=== PATIENT | male | born 1950 | race Caucasian/White ===

== ENCOUNTER 2025-06-18 23:00 | Emergency (ER) | payer MEDICARE, OTHER, SELFPAY ==
[2025-06-18 23:06] VITALS: BP 142/89
[2025-06-18 23:31] VITALS: BMI 33.5
[2025-06-18 23:34] VITALS: BP 129/60
[2025-06-18] MEDS: NSS 1000 IV (23:46)
[2025-06-18] MEDS: TORADOL 15 MG IV (23:49)
[2025-06-18] MEDS: REGLAN 10 MG IV (23:49)
[2025-06-18] MEDS: BENADRYL 25 MG IV (23:50)
[2025-06-18] MEDS: DECADRON 10 MG IV (23:50)
[2025-06-19] VITALS: BP 152/75
[2025-06-19 00:06] LABS: Hematocrit 47.4 % (39.0-52.0); Hemoglobin 15.8 g/dL (13.0-18.0); Mean Corp Hgb Conc. 33.3 g/dL (33.0-37.0); Mean Corpuscular Volume 85.1 fL (80.0-94.0); Nucleated Red Blood Cells % 0 % (-); Platelet Count 275 10^3/uL (130-400); Red Cell Dist. Width 14.3 % (11.5-14.5)
[2025-06-19 00:22] LABS: ALT (SGPT) 34 U/L (0-50); AST (SGOT) 26 U/L (17-59); Albumin 4.4 g/dl (3.5-5.0); Alkaline Phosphatase 64 U/L (38-126); Blood Urea Nitrogen 28 mg/dl (9-20); Calcium 10.1 mg/dl (8.4-10.2); Carbon Dioxide 25 mmol/L (22-30); Chloride 105 mmol/L (98-107); Estimated Creatinine Clearance 79 ml/min; Glucose 214 mg/dl (70-99); Potassium 4.1 mmol/L (3.5-5.1); Sodium 136 mmol/L (135-145); Total Protein 6.9 g/dl (6.3-8.2); eGFR > 60.00
[2025-06-19 00:31] LABS: INR 1.04; PT 14.1 Sec (11.4-14.6)
[2025-06-19 00:32] LABS: APTT 28.2 Sec (23.4-35.0)
[2025-06-19 00:37] LABS: Urine Character Clear (Clear)
[2025-06-19 00:56] LABS: Urine Red Blood Cell 0-2 /HPF (0-2); Urine Squamous Cell 0-2 /LPF (Few); Urine White Cell 0-2 /HPF (0-5)
[2025-06-19 01:00] VITALS: BP 140/82
[2025-06-19 01:35] LABS: Troponin I 0.017 ng/ml
[2025-06-19 01:37] LABS: TSH 2.22 uIU/ml (0.47-4.68)
[2025-06-19] MEDS: NSS 1000 IV (01:52)
[2025-06-19 02:00] VITALS: BP 134/79
--- NOTE | 2025-06-19 02:20 | ED.GENMED ---
History of Present Illness
General
Chief Complaint: Headache
Source: patient, spouse and family
Exam Limitations: none
Time Seen by Provider: 06/18/25 23:22
Nursing documentation reviewed up to this point in time: agreed with
History of Present Illness
History of Present Illness:
Note:
CHIEF COMPLAINT(S)
Remote history of infected finger, current mild headaches, tingling of the scalp, extreme fatigue, racing heart, and episodic feelings of warmth and sweating.
HISTORY OF PRESENT ILLNESS
The patient is a 75-year-old male who initially presented with an infected finger in early March, leading to an urgent care visit where he was prescribed Cephalexin. Subsequent cultures indicated that Cephalexin was ineffective against the bacteria
present. The patient declined to take Vancomycin due to concerns regarding its effectiveness outside the gastrointestinal tract.
Approximately two weeks ago, the patient started experiencing a constellation of symptoms, which started while playing golf. These symptoms included slight headaches, tingling of the scalp, extreme fatigue, racing heart, and episodic feelings of
warmth and sweating, with some episodes lasting as long as two hours. Notably, the patient mentioned that despite taking Ibuprofen, these symptoms persisted, and he described these episodes as periodic rather than continuous until todays sustained
headache.
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 He denied any nausea, vomiting, diarrhea, constipation, or difficulties with urination. Despite feeling warm and sweating, he reported no fevers. There is a
history of a brain abscess treated 26 years ago at the [facility], with the causative bacteria identified as Enterococcus faecalis resistant to culture growth.
PAST MEDICAL AND SURGICAL HISTORY
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
ADDITIONAL HISTORY OBTAINED FROM SOURCES OTHER THAN THE PATIENT
The [facility] [place] [facility], and the flagged lab results showed normal inflammatory markers, normal white blood cell counts, and normal C-reactive protein levels. Despite this, the physician
was concerned about the possibility of a hiding infection due to past medical history.
CHRONIC MEDICAL CONDITIONS SIGNIFICANTLY AFFECTING CARE
The patient has a history of being treated for racing heart with Propranolol ten years ago.
SOCIAL DETERMINANTS AFFECTING HEALTH
The patients is currently undergoing treatment for pancreatic cancer and diabetes, which has caused significant stress for the patient, including disrupted sleep patterns due to monitoring her blood sugar levels.
REVIEW OF SYSTEMS
- Neurological: Headaches, tingling of the scalp.
- Cardiovascular: Racing heart.
- General: Extreme fatigue.
- Dermatological: Episodic feelings of warmth and sweating.
PHYSICAL EXAM
General: Alert, no acute distress.
Skin: Warm, dry.
Head: Normocephalic, atraumatic.
Neck: Supple, trachea midline.
Eye, Ears, Nose, Mouth, and Throat: Oral mucosa moist.
Cardiovascular: Normal peripheral perfusion, no edema.
Respiratory: Respirations are non-labored.
Gastrointestinal: Abdomen nondistended.
Back: Normal range of motion, normal alignment.
Musculoskeletal: Normal range of motion, normal strength.
Neurological: Alert and oriented to person, place, time, and situation, no focal neurological deficit observed.
Psychiatric: Cooperative, appropriate mood & affect.
PLAN
- Conduct a CT angio of the head and neck of the head to evaluate for any intracranial abnormalities, fluid collections, or masses.
- Consider a lumbar puncture to further investigate the presence of an infection if the CT findings are inconclusive. Patient refused
- Analyze current blood work and diagnostic imaging to rule out any hidden infection.
- Address current headache with appropriate medication.
- Evaluate thyroid function as a potential source of the symptoms.
- If necessary, proceed with cerebrospinal fluid analysis to rule out meningitis or other central nervous system infections.
DIFFERENTIAL DIAGNOSIS
The Differential Diagnosis includes, in no particular order and is not limited to:
1. Intracranial mass or abscess not seen on CAT scan
2. Meningitis felt unlikely, patient refused lumbar puncture
3. Thyrotoxicosis
4. Anxiety disorder due to situational stress patient states that he does have a lot of situational stress recently
5. Cardiovascular event or arrhythmia
6. Chronic fatigue syndrome
7. Systemic infection
8. Neuropathic pain or neuralgia
9. Medication side effect
10. Heat exposure or generalized hyperhidrosis
CARE-UPDATE
06/19/25 - 04:12
Discussed lab results and CT scan with patient. Patient hesitant about lumbar puncture. I agreed, given normal labs, absence of nuchal rigidity, resolved headache, and no fever. Patient considering LP; we will follow up.
Disposition:
SUMMARY OF ENCOUNTER
The patient is a 75-year-old male who presented to the emergency department with complaints of a mild headache. He denied neck pain, nuchal rigidity, blurry vision, numbness, tingling, difficulty breathing, difficulty swallowing, and chest pain. The
patient has a distant history of a brain abscess. A CT and CT angiography of the head and neck were performed, showing no acute processes, but did reveal a ecsar hole from previous treatment of the abscess. Inflammatory markers were within normal
limits. After discussing the potential need for a lumbar puncture, the patient decided against it after understanding the risks of possible misdiagnosis without it. The patient wishes to follow up with neurology.
DISPOSITION
Discharge.
ASSESSMENT
The patients symptoms of a mild headache appear stable, and imaging shows no acute intracranial events. He remains neurologically intact with a history of brain abscess and the current headache likely related but not life-threatening.
PLAN
The patient is advised to follow up with a neurologist for further evaluation and management of his headaches. He is discharged home in an improved condition.
INDEPENDENT REVIEW OF LABS AND INTERPRETATION OF TESTS
My independent review of lab work indicates inflammatory markers are within normal limits.
ADDITIONAL TESTING AND IMAGING CONSIDERED
A lumbar puncture was considered but ultimately not performed due to the patient�s decision after discussing the risks and benefits.
MEDICAL DECISION MAKING
-Complexity of Data Reviewed: Chronic conditions affecting care [History of brain abscess]
-Differential Diagnosis:
1. Intracranial mass or abscess
2. Meningitis
3. Thyrotoxicosis
4. Anxiety disorder due to situational stress
5. Cardiovascular event or arrhythmia
6. Chronic fatigue syndrome
7. Systemic infection
8. Neuropathic pain or neuralgia
9. Medication side effect
10. Heat exposure or generalized hyperhidrosis
-Data:
Category 1
- My independent interpretation of CT and CT angiography showed no acute intracranial processes.
Category 2
- Clinical information was obtained from an independent historian: The patients prior records indicate a history of a brain abscess treated 26 years ago.
-Risk:
Prescription medication was not prescribed.
Care significantly affected by Social Determinants of Health: The patients stress related to his wifes health condition.
DIAGNOSIS
Headache, unspecified (ICD-10: R51.9)
Phy Exam
Physical Exam
Physical Exam:
.
Sepsis
Sepsis Screening
Sepsis Assessment: Sepsis Ruled Out
Sepsis Screen
Sepsis Screen: Sepsis Ruled Out
Date: 06/19/25
Time: 05:27
Course
Orders/Labs/Results
Orders:
Orders
06/18/25 23:25
0.9% Sodium Chloride 1000 ml [Nss] 1,000 ml IV BOLUS
Dexamethasone Sod Phosphate [Decadron] 10 mg IV NOW STA
Diphenhydramine [Benadryl] 25 mg IV NOW STA
Ketorolac [Toradol] 15 mg IV NOW STA
Metoclopramide [Reglan] 10 mg IV NOW STA
06/18/25 23:40
Complete Blood Count/With Diff Urgent
Comprehensive Metabolic Panel Urgent
Erythrocyte Sed Rate Urgent
PTT Urgent
Prothrombin Time Urgent
06/18/25 23:59
UA Reflex to Culture [Urinalysis Reflex To Culture] Urgent
Date Specimen was Collected: 06/19/25
Time Specimen was Collected: 00:00
Blood Culture Urgent
JENI Source: Blood/Venous
Specimen Description:
Date Specimen was Collected: 06/19/25
Time Specimen was Collected: 00:00
06/19/25
CT Head & Neck Angio W/wo IV Urgent
Reason For Exam: intractable headache
06/19/25 00:05
TSH Urgent
06/19/25 00:16
Urine Microscopic Reflex Cult Urgent
06/19/25 00:29
Electrocardiogram (*1) Urgent
Reason for Study: Vertigo / Dizzy
EKG- Treatment ONCE
0.9% Sodium Chloride 1000 ml [Nss] 1,000 ml IV BOLUS
06/19/25 00:46
Troponin I Urgent
Abnormal Lab Results
06/18/25 06/19/25
23:40 00:16
Absolute Lymphs (auto) 1.0 L 10^3/uL
(1.2-3.4)
Neutrophils % 78.1 H %
(42.2-75.2)
Lymphocytes % 12.0 L %
(20.5-51.1)
BUN 28 H mg/dl
(9-20)
Glucose 214 H mg/dl
(70-99)
Urine Bacteria (Reflex) Few A
(Negative)
Urine Albumin (Reflex) 2+ A
(Neg - Trace)
06/18/25 23:40
06/18/25 23:40
Vital Signs
Initial and Last Documented VS:
Initial Vital Signs
Temp Pulse Resp BP Pulse Ox
98.1 F 111 20 142/89 95
06/18/25 23:06 06/18/25 23:06 06/18/25 23:06 06/18/25 23:06 06/18/25 23:06
Last Documented Vital Signs
Temp Pulse Resp BP Pulse Ox
98.1 F 71 17 152/75 94
06/18/25 23:06 06/19/25 01:00 06/19/25 01:00 06/19/25 00:00 06/19/25 02:20
*Radiology
Radiology exam reviewed: preliminary read by ED provider
*Pulse Oximetry
SaO2: 94
Oxygen Mode of Delivery: Room air
Patient hypoxic: no
*Critical Care Note
Total Time (30-74mins, 75-104mins- exclusive of procedures): Not Applicable
Update Note
Update Note:
NAME: MENDOZA SPICER
DATE OF EXAM: 06/19/2025
Patient No: [id number]
Physician: EZEQUIEL^Tony
Date of : 1950
Past Medical History (entered by Technologist):
Reason For Exam (entered by Technologist):
Other Notes (entered by Technologist): pt presents with vertigo, headache, and unsteady gait
Additional Information (per Vision Radiologist):
CT head without contrast
CTA head and neck with IV contrast
IMPRESSION:
Non-contrast Head:
No acute intracranial abnormality. No acute territorial infarct, hemorrhage, mass effect, or midline shift. Mild microangiopathy. Left parietal cesar hole.
CTA Neck:
The bilateral vertebral arteries are widely patent. Bilateral common carotid and internal carotid arteries are widely patent without significant stenosis. Mild atherosclerosis of the bilateral carotid artery bifurcations, right greater than left.
Mild cervical spondylosis.
CTA Head:
The [place] de[place]' of [place] is patent without aneurysm, stenosis, or occlusion.
The results were faxed/finalized only at [id number] ET. If you would like to discuss this case directly please call [phone] (extension [phone]). If you can't reach me at this number, do not leave a voicemail. Please call [phone] ext [phone] and ask for
the next available Radiologist.
Anisa Clement M.D.
This report has been electronically signed and verified by the Radiologist whose name is printed above.
ED Attending Note
-
Portions of this chart may have been created with voice recognition software.� Occasional wrong word or��sound alike� substitutions may have occurred due to the inherent limitations of voice recognition software.
Discharge Plan
Departure
Patient Disposition: Home (Routine Discharge)
Date of Disposition: 06/19/25
Time of Disposition: 05:26
Patient with high blood pressure during this ER visit?: Yes
Condition: Good
Discharge Problem:
Headache, Anxiety
Referrals:
Joslyn Han MD [Non-Admitting Privileges, Psychiatry] - Call in 1-3 days for appt
Activity Restrictions/Additional Instructions:
Thank You for choosing [facility].
It was a pleasure meeting you and taking part in your care. We hope for your continued healing and wellness.
Please read discharge instructions in their entirety. However, they are for general education and may not describe your exact diagnosis at discharge. Information on your ER visit and medical conditions were discussed with you along with appropriate
follow up information...
If indicated, please take your medications as instructed and indicated on discharge paperwork.
Please schedule a follow up appointment as directed. Call to schedule an appointment
Please return to the emergency department with ANY change in, persisting, or worsening of symptoms. If any of your symptoms do not improve, or persist, or become more severe within 6-12 hours, please return to the emergency department for further
care.
Please return to the emergency department if you develop a headache, neck pain/stiffness, fever greater than 100.4F, chest pain, shortness of breath, persistent nausea, vomiting, slurred speech, difficulty walking, numbness/tingling, weakness, signs
of infection or any other symptoms that are worrisome to you.
If you have any questions or concerns please do not hesitate to call the Hospital at or E-mail me directly at [email or web address]
Interventions
Interventions:
*Risk Screen - Suicide Last Done: 06/18/25 23:06
*General Assessment Last Done: 06/18/25 23:06
*Neglect/Abuse Screening Last Done: 06/18/25 23:06
*ED- Fall Risk Assessment Last Done: 06/18/25 23:06
*ED COVID-19 Vaccine History Last Done: 06/18/25 23:06
ED- Neurological Assessment Last Done: 06/18/25 23:56
Discharge Date and Time
Print Language: THAI
[2025-06-19 03:00] VITALS: BP 133/75
[2025-06-19 04:00] VITALS: BP 137/88
[2025-06-19 05:00] VITALS: BP 176/95
== END 2025-06-19 05:54 | disposition home or self-care (01) ==
LOC: EMR 23:00
PROVIDERS: EMERGENCY PHYSICIAN Student in an Organized Health Care Education/Training Program
DX: R51.9 Headache, unspecified (principal); F41.9 Anxiety disorder, unspecified; R03.0 Elevated blood-pressure reading, without diagnosis of hypertension; I65.23 Occlusion and stenosis of bilateral carotid arteries; M47.812 Spondylosis without myelopathy or radiculopathy, cervical region; Z63.79 Other stressful life events affecting family and household; Z86.61 Personal history of infections of the central nervous system
CPT/HCPCS: 99284; 96374; 96375 ×3; 96361 ×2; 70496; 70498; 80053; 81003; 81015; 84443; 84484; 85025; 85610; 85652; 85730; 87040; 93005; Q9967

== ENCOUNTER → 2025-08-06 14:04 | Outpatient (REF) | payer MEDICARE, OTHER, SELFPAY | LOC: RCS 14:04 | PROVIDERS: ATTENDING PHYSICIAN Student in an Organized Health Care Education/Training Program | DX: R00.0 Tachycardia, unspecified (principal) | CPT/HCPCS: 93306 ==